=== PATIENT | male | born 1995 | race African-American/Black ===

== ENCOUNTER 2024-10-09 14:16 | Emergency (ER) | payer SELFPAY ==
[~2024-10-09] VITALS: Ht 185.4 cm; Wt 70.3 kg
[2024-10-09] MEDS ORDERED: LORAZEPAM INJ 2 MG/ML VIAL ONE (14:31)
[2024-10-09] MEDS: LEVETIRACETAM (500MG) 250 MG in IV NS 0.9% 100 ML IV STA (14:40)
[2024-10-09 14:49] LABS: PLATELET COUNT (AUTO) 274 K/uL (150-450); RED BLOOD CELL COUNT(AUTO) 4.81 MIL/uL (4.5-6.0); RED CELL DISTRIBUTION WIDTH 13.1 % (11.5-15.0); WHITE BLOOD COUNT (AUTO) 4.8 K/uL (4.3-11.0)
[2024-10-09 14:58] LABS: CALCIUM, SERUM 8.9 mg/dL (8.5-10.1); CREATININE 1.2 mg/dL (0.6-1.3); SODIUM SERUM 137 mmol/L (136-145); UREA NITROGEN, BLOOD 8 mg/dL (7-18)
[2024-10-09 15:04] LABS: ALCOHOL, BLOOD 3 mg/dL (0-10); ASPARTATE AMINOTRANSFERASE 183 U/L (15-37); TOTAL PROTEIN, SERUM 8.0 g/dL (6.4-8.2)
[2024-10-09] MEDS ORDERED: PHENOBARBITAL SODIUM 130 MG/ML VIAL ONE (15:22)
[2024-10-09] MEDS: PHENOBARBITAL SODIUM 130 MG/ML VIAL IV ONE (15:36)
[2024-10-09] MEDS ORDERED: CHLO25CA22 PO (16:54)
[2024-10-09 17:05] VITALS: BP 142/87; TEMP 97.8; O2SAT 97
== END 2024-10-09 17:06 | disposition home or self-care (01) ==
LOC: ER 14:24
DX: F10.239 Alcohol dependence with withdrawal, unspecified (principal); R07.9 Chest pain, unspecified; R05.9 Cough, unspecified; R56.9 Unspecified convulsions; Y90.0 Blood alcohol level of less than 20 mg/100 ml
CPT/HCPCS: 99285; 96365; 96375; 93005; 71045; 70450; 85025; 80048; 80076; 36415; 84484 ×2; 82962; 80320; J2060; J2560; J7030 ×2; J1953; G0480